=== PATIENT | female | born 1960 | race Hispanic/Latino ===

== ENCOUNTER 2019-07-31 08:52 | Observation (INO) | payer BC ==
[2019-07-30 12:45] VITALS: BP 116/72
[2019-07-30 12:49] LABS: BASOPHILS % (AUTO) 0.6 % (0.0-5.0); EOSINOPHILS % (AUTO) 2.4 % (0.0-8.0); HEMATOCRIT 41.1 % (36-48); LYMPHOCYTES % (AUTO) 28.1 % (21.0-51.0); MEAN CORPUSCULAR HEMOGLOBIN 28.3 pg (27.0-33.0); MEAN CORPUSCULAR HGB CONC 33.2 g/dL (32.0-36.0); MEAN CORPUSCULAR VOLUME 85.3 fL (79-99); MONOCYTES % (AUTO) 4.7 % (3.0-13.0); NEUTROPHILS % (AUTO) 64.2 % (40.0-77.0); PLATELET COUNT (AUTO) 280 K/uL (130-400); RED BLOOD CELL COUNT(AUTO) 4.81 MIL/uL (4.00-5.50); RED CELL DISTRIBUTION WIDTH 13.9 % (11.0-15.5); WHITE BLOOD COUNT (AUTO) 7.1 K/uL (4.8-10.8)
[~2019-07-31] VITALS: Ht 177.8 cm; Wt 77.6 kg
[2019-07-31] VITALS (22 sets, daily range): BP systolic 99–127; BP diastolic 53–75
[~2019-07-31 08:52] MED LIST: ASCO500T9 PO; ESOM40CA54 PO; LOSA50TA64 PO; VITAMIN D PO; VITAMIN E PO
--- NOTE | 2019-07-31 09:30 | NUR ---
PUPILS pt has bilateral lens implants Addendum: 07/31/19 at 1033 by ROD CORDERO RN RN Amended: Links added.
[2019-07-31] MEDS ORDERED: CALDOLOR 800MG+NS 250ML 250 ML IV ONE (09:44)
[2019-07-31] MEDS ORDERED: LACTATED RINGERS 1000ML 1,000 ML IV ONE (09:47)
[2019-07-31] MEDS: CEFAZOLIN SODIUM 1 GM VIAL ONE ×2 (09:49→10:30)
[2019-07-31] MEDS ORDERED: MIDAZOLAM HCL 1 MG/ML 2ML VIAL ONE (10:13)
[2019-07-31] MEDS ORDERED: FENTANYL CITRATE PF 50 MCG/1 ML 5ML AMP IV ONE (10:13)
[2019-07-31] MEDS ORDERED: PROPOFOL 10 MG/ML 20ML VIAL IV ONE (10:13)
[2019-07-31] MEDS ORDERED: ROCURONIUM 10MG/1ML SYR 10 MG/ML ML ONE (10:13)
[2019-07-31] MEDS ORDERED: LIDOCAINE 1%-EPI 1:100,000 20 ML VIAL IJ ONE (10:44)
[2019-07-31] MEDS ORDERED: EPHEDRINE SULFATE 50 MG/ML AMPULE ONE (10:53)
[2019-07-31] MEDS ORDERED: DEXAMETHASONE SOD PHOSPHATE 10MG/ML 1ML VIAL ONE (10:58)
[2019-07-31] MEDS ORDERED: ONDANSETRON HCL 4 MG/2 ML VIAL ONE (10:58)
[2019-07-31] MEDS ORDERED: METOCLOPRAMIDE 10 MG/2 ML VIAL ONE (10:58)
[2019-07-31] MEDS ORDERED: GLYCOPYRROLATE 1 MG/5 ML SYRINGE ONE (11:45)
[2019-07-31] MEDS ORDERED: NEOSTIGMINE 5MG/5ML SYR IV ONE (11:45)
[2019-07-31] MEDS ORDERED: ESTROGENS,CONJUGATED 0.625 MG/GM 42.5 GM VAG CRM VG ONE (11:47)
[2019-07-31] MEDS ORDERED: ONDANSETRON HCL 4 MG/2 ML VIAL IVP PRN (12:15)
[2019-07-31] MEDS ORDERED: SIMETHICONE 80 MG TAB.CHEW PO PRN (12:15)
[2019-07-31] MEDS ORDERED: PROMETHAZINE HCL 25 MG/ML 1ML AMPULE IM PRN ×2 (12:15)
[2019-07-31] MEDS ORDERED: BISACODYL 10 MG SUPP.RECT RC PRN (12:15)
[2019-07-31] MEDS ORDERED: MEPERIDINE-PF 75 MG/ML SYG IM PRN (12:15)
[2019-07-31] MEDS ORDERED: DOCUSATE SODIUM 100 MG CAP PO PRN (12:15)
[2019-07-31] MEDS ORDERED: ACETAMINOPHEN-CODEINE 300/30MG TAB PO PRN (12:15)
[2019-07-31] MEDS: CEFAZOLIN SODIUM 1 GM VIAL IVP SCH (17:55)
[2019-07-31] MEDS ORDERED: MEPERIDINE-PF 50 MG/ML SYG IM PRN (19:30)
[2019-07-31] MEDS ORDERED: MEPERIDINE HCL/PF 25 MG/0.5 ML AMPUL IM PRN (19:30)
[2019-07-31] MEDS ORDERED: MEPERIDINE-PF 25 MG/ML SYG IM PRN (19:45)
[2019-07-31] MEDS: CALDOLOR 800MG+NS 250ML 250 ML IV SCH (20:30)
[2019-07-31] MEDS: DEXTROSE 5 %-0.45 % NACL 1,000 ML IV PRN (20:31)
[2019-08-01] MEDS: CEFAZOLIN SODIUM 1 GM VIAL IVP SCH (02:27)
[2019-08-01] MEDS: CALDOLOR 800MG+NS 250ML 250 ML IV SCH (04:09)
[2019-08-01 04:28] VITALS: BP 93/58
[2019-08-01] MEDS: DEXTROSE 5 %-0.45 % NACL 1,000 ML IV PRN (06:07)
--- NOTE | 2019-08-01 06:30 | NUR ---
leung catheter F/C REMOVED , INTACT , TOLERATED WELL, INSTRUCTED TO CALL NURSE FOR ASSISTANCE WHEN SHE HAS URGE TO VOID, ACKNOWLEDGES UNDERSTANDING Addendum: 08/01/19 at 0707 by OREN HENNING LVN Amended: Links added.
[2019-08-01 06:49] LABS: HEMATOCRIT 28.3 % (36-48); MEAN CORPUSCULAR HEMOGLOBIN 28.3 pg (27.0-33.0); MEAN CORPUSCULAR HGB CONC 33.6 g/dL (32.0-36.0); MEAN CORPUSCULAR VOLUME 84.3 fL (79-99); PLATELET COUNT (AUTO) 242 K/uL (130-400); RED BLOOD CELL COUNT(AUTO) 3.36 MIL/uL (4.00-5.50); RED CELL DISTRIBUTION WIDTH 13.8 % (11.0-15.5); WHITE BLOOD COUNT (AUTO) 13.6 K/uL (4.8-10.8)
[2019-08-01 07:23] VITALS: BP 91/57
[2019-08-01] MEDS ORDERED: PANTOPRAZOLE SODIUM 40 MG TABLET.DR PO SCH (09:00)
[2019-08-01 11:05] VITALS: BP 117/73
[2019-08-01] MEDS ORDERED: LOSARTAN 50 MG TABLET PO SCH (12:00)
[2019-08-01] MEDS ORDERED: IBUPROFEN 800 MG TAB PO SCH (12:15)
--- NOTE | 2019-08-01 13:30 | NUR ---
DISCHARGE TEACHING PATIENT GIVEN DISCHARGE TEACHING AND EXIT CARE. PATIENT INSTRUCTED ON CONTINUATION OF AT HOME MEDICATIONS AND NEW PRESCRIBED MEDICATIONS. PATIENT VERBALIZED ON AT HOME CARE AFTER PROCEDURE. PATIENT VERBALIZED UNDERSTANDING.
--- NOTE | 2019-08-01 13:45 | NUR ---
DISCHARGE PATIENT TAKEN VIA WHEELCHAIR TO [facility]. PATIENT TOLERATED WELL AND STATED SHE DID NOT HAVE ANY PAIN. PATIENT ACCOMPANIED BY SISTER. PATIENT ASSISTED INTO PRIVATE VEHICLE.
== END 2019-08-01 13:45 | disposition home or self-care (01) ==
LOC: DAH 08:52 → WSH 13:00 → INTOOBSV 18:07 → DAH 18:07 → WSH 18:07
DX: N81.4 Uterovaginal prolapse, unspecified (principal); N81.6 Rectocele; I10 Essential (primary) hypertension; K21.9 Gastro-esophageal reflux disease without esophagitis; Z79.899 Other long term (current) drug therapy
CPT/HCPCS: 36415; 85025; 85027; 86850; 86900; 86901; 96365; 96366; 96375; 96376; A4344; A4351; G0378; J0690; J1100; J1741; J2250; J2405; J2704; J2710; J2765; J3010; J3490; J7120

== ENCOUNTER → 2022-10-27 | Outpatient (CLI) | payer BC, SELFPAY ==
[~2022-10-27] MED LIST changes: +ASCO500T20 PO; -ASCO500T9 PO; +IOHEXOL 350 MG/ML 100ML INFUS..BTL IV ONE
== END | disposition home or self-care (01) ==
LOC: RAH 07:56
PROVIDERS: ATTEND Internal Medicine Cardiovascular Disease
DX: I20.9 Angina pectoris, unspecified (principal)
CPT/HCPCS: 75574; Q9967